=== PATIENT | female | born 1960 | race Caucasian/White ===

== ENCOUNTER → 2017-01-30 | Outpatient (CLI) | payer BC ==
[2017-01-30 11:00] LABS: Cholesterol 189 mg/dL (<200); HDL Cholesterol 66 mg/dL (40-60); Triglycerides 43 mg/dL (<150)
== END | disposition home or self-care (01) ==
LOC: LABWHC1 10:01
PROVIDERS: ATTEND Physician Assistant Medical
DX: E78.5 Hyperlipidemia, unspecified (principal)
CPT/HCPCS: 36415; 80061

== ENCOUNTER → 2021-05-28 | Outpatient (CLI) | payer BC ==
--- NOTE | 2021-05-28 15:48 | BD ---
EXAMINATION TYPE: Axial Bone Density DATE OF EXAM: 05/28/2021 COMPARISON: NONE CLINICAL HISTORY: Height: 66.5 IN Weight: 182 LBS RISK FACTORS HISTORY OF: Active: YES Diet low in dairy products/other sources of calcium: YES Postmenopausal woman: TOTAL HYST AGE 50 MEDICATIONS: Additional Medications: CALCIUM, VIT D, Additional History: BREAST CANCER EXAM MEASUREMENTS: Bone mineral densitometry was performed using the GRID System. Bone mineral density as measured about the Lumbar spine is: ----- L1-L4(G/cm2): 1.036 T Score Values are as follows: ----- L2: -1.7 ----- L3: -1.1 ----- L4: -0.9 ----- L1-L4: -1.2 Bone mineral density BASELINE Bone mineral density about the R hip (g/cm2): 0.900 Bone mineral density about the L hip (g/cm2): 0.872 T Score values are as follows: -----R Neck: -1.0 -----L Neck: -1.2 -----R Total: -0.9 -----L Total: -0.8 Bone mineral density BASELINE IMPRESSION: Osteopenia (T Score between -2.5 and -1). There is slightly increased risk of fracture and the patient may be considered for treatment. Re-Screen 2-5 years. NOTE: T-SCORE=SD OF THE YOUNG ADULT MEAN.
== END | disposition home or self-care (01) ==
LOC: RADBDWWP 12:19
PROVIDERS: ATTEND Internal Medicine Medical Oncology
DX: M85.89 Other specified disorders of bone density and structure, multiple sites (principal); Z78.0 Asymptomatic menopausal state; Z85.3 Personal history of malignant neoplasm of breast
CPT/HCPCS: 77080

== ENCOUNTER → 2023-05-05 | Outpatient (CLI) | payer MEDICARE, BC ==
[2023-05-05 15:09] LABS: Basophils % (A) 1.9 %; Eosinophils # (A) 0.13 X 10*3/uL (0.04-0.35); Eosinophils % (A) 2.5 %; HCT 45.5 % (37.2-46.3); HGB 15.5 d/dL (12.0-15.0); Lymphocytes # (A) 1.64 X 10*3/uL (0.90-5.00); Lymphocytes % (A) 31.1 %; MCH 32.1 pg (27.0-32.0); MCHC 34.1 d/dL (32.0-37.0); MCV 94.2 FL (80.0-97.0); Monocytes # (A) 0.65 X 10*3/uL (0.20-1.00); Monocytes % (A) 12.3 %; NRBC Per 100 WBC 0 X 10*3/uL (0.00-0.01); Neutrophils # (A) 2.73 X 10*3/uL (1.80-7.70); Neutrophils % (A) 51.8 %; Platelet Count 309 X 10*3/uL (140-440); RBC 4.83 X 10*6/uL (4.10-5.20); WBC 5.27 X 10*3/uL (4.50-10.00)
[2023-05-05 16:06] LABS: Blood Urea Nitrogen 16.8 mg/dL (9.0-27.0); Carbon Dioxide 28.1 mmol/L (21.6-31.8); Chloride 101 mmol/L (96-109); Potassium 5.2 mmol/L (3.5-5.5); Sodium 140 mmol/L (135-145)
== END | disposition home or self-care (01) ==
LOC: LABPAT 10:20
PROVIDERS: ATTEND Internal Medicine
DX: Z01.812 Encounter for preprocedural laboratory examination (principal); I48.11 Longstanding persistent atrial fibrillation; R06.02 Shortness of breath; R00.2 Palpitations
CPT/HCPCS: 80051; 82565; 84520; 85025

== ENCOUNTER 2023-05-06 10:25 | Day surgery (SDC) | payer MEDICARE, BC ==
[~2023-05-06 10:25] MED LIST: LACTATED RINGERS 1,000 ML IV SCH; LIDOCAINE 1% (10MG/ML) FOR IV START INTRADERMA PRN
[2023-05-06 11:17] VITALS: TEMP 97.2
[2023-05-06] MEDS ORDERED: BENZOCAINE SPRAY 1 CAN TOPICAL ONE (12:01)
[2023-05-06] MEDS ORDERED: LIDOCAINE 1% INJ 10MG/ML (20 ML MDV) ONE (12:03)
[2023-05-06] MEDS ORDERED: PROPOFOL 10 MG/ML 20 ML VIAL IV ONE (12:03)
[2023-05-06 13:08] VITALS: RESP 16
[2023-05-06 14:19] VITALS: BP 103/61; PULSE 48
--- NOTE | 2023-05-06 21:00 | P.TEE ---
Description of Procedure(s): Procedure performed: Transesophageal Echocardiogram with color flow doppler, pulsed wave doppler and continuous wave doppler, synchronized cardioversion Moderate conscious sedation: Moderate conscious sedation was supplied by anesthesia, see separate report. Complications: none Indications: Atrial fibrillation PROCEDURE: After the risks, benefits and alternatives of the above mentioned procedure was explained in detail with the patient, informed consent was obtained. Patient was brought to the lab in a fasting state. Patient was given sedation by anesthesia, see separate report. The throat was sprayed with Hurricane to anesthetize the throat. A lubricated Omni probe was then introduced into the esophagus and stomach and multiple views were obtained. 2D echo with color flow doppler, pulsed wave doppler and continuous wave doppler was utilized. Agitated saline bubbles were injected to assess for any intra-atrial shunt. The probe was then removed. There was no thrombus noted and therefore patient underwent synchronized cardioversion x 1 with 200J with resultant sinus rhythm. Patient tolerated the procedure well. Patient was transferred to the post procedure area in stable and satisfactory condition. FINDINGS: 1. The aortic valve is tricuspid with normal function and trace aortic insufficiency. 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 MRI recommended if clinically indicated. 2. The mitral valve appears be normal structurally with mild mitral regurgitation. 3. Tricuspid valve appears to be normal with trace tricuspid regurgitation. 4. There is no PFO. 5. Left atrial appendage is free of clot. 6. Left ventricular ejection fraction is 30-35% with global hypokinesis.
== END 2023-05-06 14:41 | disposition home or self-care (01) ==
LOC: OR 10:25
PROVIDERS: ATTEND Internal Medicine
DX: I08.3 Combined rheumatic disorders of mitral, aortic and tricuspid valves (principal); I48.19 Other persistent atrial fibrillation; E78.5 Hyperlipidemia, unspecified; Z82.49 Family history of ischemic heart disease and other diseases of the circulatory system; Z79.01 Long term (current) use of anticoagulants; Z79.899 Other long term (current) drug therapy
CPT/HCPCS: 93312; 93320; 93325; 92960; J2001; J2704

== ENCOUNTER → 2023-06-26 | Outpatient (CLI) | payer MEDICARE, BC ==
--- NOTE | 2023-06-29 12:22 | BD ---
EXAMINATION TYPE: Axial Bone Density DATE OF EXAM: 06/26/2023 CLINICAL HISTORY: 63 years old Female. 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 Menopause before 45: yes RISK FACTORS HISTORY OF: Family History of Osteoporosis: no Active: yes Diet low in dairy products/other sources of calcium: no Postmenopausal woman: yes Lost more than 2 inches in height since high school: no Frequent falls: no MEDICATIONS: Additional Medications: yes heart meds Additional History: yes breast 2008, melanoma 2009 EXAM MEASUREMENTS: Bone mineral densitometry was performed using the [employer] System. Bone mineral density as measured about the Lumbar spine is: ----- L1-L4(G/cm2): 1.021 T Score Values are as follows: ----- L1: -1.6 ----- L2: -1.3 ----- L3: -1.4 ----- L4: -1.3 ----- L1-L4: -1.3 Z Score Values are as follows: ----- L1: -0.9 ----- L2: -0.7 ----- L3: -0.7 ----- L4: -0.7 ----- L1-L4: -0.7 Bone mineral density has: Decreased -1.4% since study of: 05/28/2021 Bone mineral density about the R hip (g/cm2): 0.893 Bone mineral density about the L hip (g/cm2): 0.903 T Score values are as follows: -----R Neck: -1.8 -----L Neck: -1.7 -----R Total: -0.9 -----L Total: -0.8 Z Score values are as follows: -----R Neck: -0.9 -----L Neck: -0.8 -----R Total: -0.4 -----L Total: -0.3 Bone mineral density has: Increased 0.1% since study of: 05-28-2021 FRAX%s: The graph provided illustrates a 9.0% chance for a major osteoporotic fx and a 1.0% chance fo r the hips probability for fx in 10 years time. IMPRESSION: Osteopenia (T Score between -2.5 and -1). There is slightly increased risk of fracture and the patient may be considered for treatment. Re-Screen 2-5 years. NOTE: T-SCORE=SD OF THE YOUNG ADULT MEAN.
== END | disposition home or self-care (01) ==
LOC: RADBDWWP 14:51
PROVIDERS: ATTEND Internal Medicine Medical Oncology
DX: D05.11 Intraductal carcinoma in situ of right breast (principal); M85.89 Other specified disorders of bone density and structure, multiple sites; Z78.0 Asymptomatic menopausal state
CPT/HCPCS: 77080

== ENCOUNTER → 2023-12-25 | Day surgery (SDC) | payer MEDICARE, BC ==
[~2023-12-25] MED LIST changes: +ALPRAZolam 0.25 MG TAB PO PRN; +ALPRAZolam 0.5 MG TAB PO PRN; +ASPIRIN 81 MG ONE; -LACTATED RINGERS 1,000 ML IV SCH; -LIDOCAINE 1% (10MG/ML) FOR IV START INTRADERMA PRN; +NITROGLYCERIN SL TABS 0.4 MG TAB SUBLINGUAL PRN
[2023-12-25] MEDS: SODIUM CHLORIDE 0.9% 1,000 ML in EMPTY BAG 1 BAG IV SCH (06:16)
[2023-12-25] MEDS: ASPIRIN 325 MG TAB PO STA (06:18)
[2023-12-25 06:40] LABS: Basophils # (A) 0.1 k/uL (0-0.2); Basophils % (A) 2 %; Eosinophils # (A) 0.1 k/uL (0-0.7); Eosinophils % (A) 2 %; HCT 46.3 % (34.0-46.0); HGB 15.3 gm/dL (11.4-16.0); Lymphocytes % (A) 34 %; MCH 32.7 pg (25.0-35.0); MCV 98.9 fL (80.0-100.0); Mean Platelet Volume 8.8; Monocytes # (A) 0.8 k/uL (0-1.0); Monocytes % (A) 13 %; Neutrophils # (A) 2.7 k/uL (1.3-7.7); Neutrophils % (A) 46 %; Platelet Count 271 k/uL (150-450); RBC 4.68 m/uL (3.80-5.40); RDW 12.5 % (11.5-15.5); WBC 5.9 k/uL (3.8-10.6)
[2023-12-25 07:10] VITALS: TEMP 98.2
[2023-12-25] MEDS: LIDOCAINE 1% INJ 10MG/ML (20 ML MDV) SQ ONE (07:49)
[2023-12-25] MEDS: fentaNYL (PF) 50 MCG/1 ML VIAL IVP ONE ×2 (07:50→07:55)
[2023-12-25] MEDS: VERAPAMIL SYRINGE (5 MG/10 ML) INTRAARTER ONE (07:50)
[2023-12-25] MEDS: MIDAZOLAM 2 MG/2 ML VIAL IVP ONE ×2 (07:50→07:55)
[2023-12-25] MEDS: HEPARIN SODIUM 1,000 UN/ML (10ML VL) IVP ONE (07:53)
--- NOTE | 2023-12-25 08:01 | P.CARDCATH ---
Description of Procedure: PROCEDURES PERFORMED: Left heart catheterization, bilateral coronary angiography, ultrasound guided arterial access INDICATION: Abnormal stress test CONSENT:I have discussed the risks, benefits and alternative therapies for the above-mentioned procedure and for both sedation/analgesia as well as necessary blood product administration, if indicated, as they pertain to this patient. The patient has indicated understanding and acceptance of the risks and procedures discussed. PROCEDURE: After the risks, benefits and alternatives of the above mentioned procedure explained in detail with the patient, informed consent was obtained. Patient was taken to the catheterization lab and prepped and draped in usual fashion. Ultrasound guidance was used to assess for arterial access. 1% lidocaine was used to anesthetize the right radial artery. A 6-[place] sheath was placed in the right radial artery using modified Seldinger technique and ultrasound guidance. Left coronary angiography was performed with a 5-[place] JL 3.5 catheter and right coronary angiography was performed with a 5-[place] FR5 catheter in various views. A 5-[place] FR5 catheter was inserted into the left ventricle and pressure measurements were obtained. The right radial sheath was removed and a TR band was placed with hemostasis achieved. The patient to lerated the procedure well. Patient was transported back to the post catheterization holding area in stable condition. Conscious Sedation: Patient was monitored under the direct supervision of myself for conscious sedation using Versed and fentanyl for a total duration of 8 minutes HEMODYNAMICS: Aorta: 114/77 LV: 123 mL LVEDP 15 SELECTIVE CORONARY ARTERIOGRAPHY: LEFT MAIN: The left main is a large caliber vessel which bifurcates into the LAD and circumflex. There is no significant stenosis. LEFT ANTERIOR DESCENDING CORONARY ARTERY: LAD is a large caliber vessel which wraps around to the apex. There is no significant stenosis. LEFT CIRCUMFLEX CORONARY ARTERY: Left circumflex is a moderate caliber vessel without significant stenosis. RIGHT CORONARY ARTERY: The right coronary artery is a large caliber vessel which gives off a PDA and PLV branch and is the dominant vessel. There is no significant stenosis. FINAL IMPRESSION: 1. Normal coronary arteries as described above. 2. Normal left sided filling pressures PLAN: 1. Aggressive risk factor modification per most recent ACC/AHA guidelines. 2. Follow-up in the office in 1-2 weeks.
[2023-12-25] MEDS: IOPAMIDOL-370 100ML BTL INTRATHECA ONE (08:06)
[2023-12-25 10:36] VITALS: BP 100/59; PULSE 52; RESP 16
== END ==
LOC: CATHCVL 05:41
PROVIDERS: ATTEND Internal Medicine
DX: R94.31 Abnormal electrocardiogram [ECG] [EKG] (principal)
CPT/HCPCS: 93458; 76937; 85025; C1769; C1894; J2250; J2001; J1644; Q9967; J3010

== ENCOUNTER → 2024-06-13 | Outpatient (CLI) | payer MEDICARE ==
[2024-06-13 15:09] LABS: HGB 13.8 g/dL (12.0-15.0); MCH 33.2 pg (27.0-32.0); MCHC 33.7 g/dL (32.0-37.0); MCV 98.6 FL (80.0-97.0); Mean Platelet Volume 12.1 FL (9.5-12.2); NRBC Per 100 WBC 0 X 10*3/uL (0.00-0.01); Platelet Count 273 X 10*3/uL (140-440); RBC 4.16 X 10*6/uL (4.10-5.20); RDW 12.4 % (11.5-14.5); WBC 5.18 X 10*3/uL (4.50-10.00)
[2024-06-13 15:10] LABS: Blood Urea Nitrogen 17.2 mg/dL (9.0-27.0); Carbon Dioxide 27.4 mmol/L (21.6-31.8); Chloride 102 mmol/L (96-109); Potassium 4.6 mmol/L (3.5-5.5); Sodium 139 mmol/L (135-145)
== END | disposition home or self-care (01) ==
LOC: LABPAT 10:08
PROVIDERS: ATTEND Internal Medicine Clinical Cardiac Electrophysiology
DX: Z01.812 Encounter for preprocedural laboratory examination (principal); I48.0 Paroxysmal atrial fibrillation
CPT/HCPCS: 36415; 80051; 82565; 84520; 85027

== ENCOUNTER 2024-06-16 09:37 | Day surgery (SDC) | payer BC, MEDICARE ==
[2024-06-16] MEDS: IV FLUID CONTINUATION 1,000 ML IV ONE (09:48)
[2024-06-16] MEDS: SODIUM CHLORIDE 0.9% 1,000 ML IV SCH (09:50)
[2024-06-16 11:06] LABS: ALT 19 U/L (4-34); AST 27 U/L (14-36); African American GFR (CKD) 86 (>60 ml/min/1.73 sqM); Albumin 4.9 g/dL (3.5-5.0); Alkaline Phosphatase 79 U/L (38-126); Anion Gap 5 mmol/L; Blood Urea Nitrogen 19 mg/dL (7-17); Calcium 9.5 mg/dL (8.4-10.2); Carbon Dioxide 29 mmol/L (22-30); Chloride 104 mmol/L (98-107); Glucose 82 mg/dL (74-99); Non-African American GFR(CKD) 74 (>60 ml/min/1.73 sqM); Potassium 4.1 mmol/L (3.5-5.1); Sodium 138 mmol/L (137-145); Total Bilirubin 1.9 mg/dL (0.2-1.3); Total Protein 7.6 g/dL (6.3-8.2)
[2024-06-16 11:27] LABS: Basophils # (A) 0.1 k/uL (0-0.2); Basophils % (A) 1 %; Eosinophils # (A) 0.1 k/uL (0-0.7); Eosinophils % (A) 2 %; HGB 14.5 gm/dL (11.4-16.0); Lymphocytes # (A) 1.5 k/uL (1.0-4.8); Lymphocytes % (A) 29 %; MCH 32.5 pg (25.0-35.0); MCHC 32.9 g/dL (31.0-37.0); MCV 98.8 fL (80.0-100.0); Mean Platelet Volume 8.9; Monocytes # (A) 0.4 k/uL (0-1.0); Monocytes % (A) 8 %; Neutrophils % (A) 58 %; Platelet Count 283 k/uL (150-450); RBC 4.46 m/uL (3.80-5.40); RDW 12.3 % (11.5-15.5); WBC 5.2 k/uL (3.8-10.6)
[2024-06-16] MEDS ORDERED: ePHEDrine 50 MG/ML 1 ML VIAL ONE (11:48)
[2024-06-16] MEDS ORDERED: ONDANSETRON 4 MG/2 ML VIAL ONE (11:48)
[2024-06-16] MEDS ORDERED: MIDAZOLAM 2 MG/2 ML VIAL ONE (11:48)
[2024-06-16] MEDS ORDERED: LIDOCAINE 1% INJ 10MG/ML (20 ML MDV) ONE (11:48)
[2024-06-16] MEDS ORDERED: ISOPROTERENOL 250 MCG/1.25 ML SYR IV ONE (11:48)
[2024-06-16] MEDS ORDERED: ROCURONIUM 10 MG/ML (5 ML VIAL) IV ONE (11:48)
[2024-06-16] MEDS ORDERED: HEPARIN SODIUM,PORCINE 10,000 UNIT/ML 1 ML VIAL ONE (11:48)
[2024-06-16] MEDS ORDERED: DEXAMETHASONE SOD PHOSPHATE 4 MG/ML 1 ML VIAL ONE (11:48)
[2024-06-16] MEDS ORDERED: PROPOFOL 10 MG/ML 20 ML VIAL IV ONE (11:48)
[2024-06-16] MEDS ORDERED: fentaNYL (PF) 50 MCG/ML 2 ML AMP ONE (11:48)
[2024-06-16] MEDS ORDERED: SUCCINYLCHOLINE CHLORIDE 200 MG/10 ML VIAL IV ONE (11:48)
[2024-06-16] MEDS: HEPARIN SODIUM,PORCINE (1 ML) 2,500 UNIT in SODIUM CHLORIDE 0.9% 250 ML IRRIGATION ONE (12:05)
[2024-06-16] MEDS: HEPARIN SODIUM,PORCINE 10,000 UNIT in SODIUM CHLORIDE 0.9% 1,000 ML IRRIGATION ONE (12:05)
[2024-06-16] MEDS: HEPARIN SOD,PORK IN 0.45% NACL 25,000 UNIT in 0.45% NACL 1 250ML.BAG IV ONE (12:05)
--- NOTE | 2024-06-16 12:11 | P.HPCAR ---
History of Present Illness This is Dr. Spivey dictating an H/P on this patient The patient was interviewed and examined IMPRESSION / ASSESSMENT: Present atrial fibrillation, with symptoms of tiredness fatigue and lack of energy/terms of congestive heart failure Associated cardiomyopathy left ventricular ejection fraction 30-35% Normal coronary arteries LVEDP 15 mmHg TSH normal PLAN: A-fib ablation HPI Patient has symptomatic atrial fibrillation with congestive heart failure symptoms and associated cardiomyopathy No recent syncope chest discomfort dizziness lightheadedness Denies any fever chills cough expectoration ROS: No fever chills or rigors, no cough, phlegm or expectoration, no nausea, vomiting or diarrhea, no hematuria, dysuria, no musculoskeletal complaints, no strokes or seizures, no skin lesions. EXAMINATION: External neck veins prominent Blood pressure 147/71 mmHg pulse rate in the 50s afebrile Heart sounds are normal and regular Breath sounds are clear REVIEW OF LABS, ECG & MEDICAL DATA White count 5.2 thousand, hemoglobin 14.5 Platelet count 283,000 Electrolytes normal SH normal Creatinine 0.9 Medications include Lasix Eliquis and metoprolol succinate Physical Exam Vitals: Vital Signs Temp Pulse Resp BP Pulse Ox 06/16/24 10:10 97.9 F 53 L 16 147/71 98 Intake and Output 06/15/24 06/16/24 06/16/24 22:59 06:59 14:59 Intake Total 50 Balance 50 Intake: IV 50 Other: Weight 89.5 kg Past Medical History Past Medical History: Atrial Fibrillation, Cancer, GERD/Reflux, Hyperlipidemia Additional Past Medical History / Comment(s): SEE DR. SPIVEY'S H&P; melanoma, bilateral breast cancer- surgery only, +Covid 2 months ago-not hospitalized History of Any Multi-Drug Resistant Organisms: None Reported Past Surgical History: Breast Surgery, Hysterectomy, Tonsillectomy, Tubal Ligation Additional Past Surgical History / Comment(s): Bilateral mastectomies/reconstruction, skin cancer removed, laparotomies/laparoscopies d/t ectopic pregnancies. cardioversion Apr 2023 Past Anesthesia/Blood Transfusion Reactions: Motion Sickness, Postoperative Nausea & Vomiting (PONV) Smoking Status: Former smoker - Past Family History Father Family Medical History: AFIB, Cancer Additional Family Medical History / Comment(s): from cancer Mother Family Medical History: AFIB Sister(s) Family Medical History: AFIB Physical Examination Vital Signs Temp Pulse Resp BP Pulse Ox 06/16/24 10:10 97.9 F 53 L 16 147/71 98 Intake and Output 06/15/24 06/16/24 06/16/24 22:59 06:59 14:59 Intake Total 50 Balance 50 Intake: IV 50 Other: Weight 89.5 kg Results 06/16/24 10:00 06/16/24 10:00 Cardiac Enzymes 06/16/24 Range/Units 10:00 AST 27 (14-36) U/L CBC 06/16/24 Range/Units 10:00 WBC 5.2 (3.8-10.6) k/uL RBC 4.46 (3.80-5.40) m/uL Hgb 14.5 (11.4-16.0) gm/dL Hct 44.0 (34.0-46.0) % Plt Count 283 (150-450) k/uL Comprehensive Metabolic Panel 06/16/24 Range/Units 10:00 Sodium 138 (137-145) mmol/L Potassium 4.1 (3.5-5.1) mmol/L Chloride 104 (98-107) mmol/L Carbon Dioxide 29 (22-30) mmol/L BUN 19 H (7-17) mg/dL Creatinine 0.84 (0.52-1.04) mg/dL Glucose 82 (74-99) mg/dL Calcium 9.5 (8.4-10.2) mg/dL AST 27 (14-36) U/L ALT 19 (4-34) U/L Alkaline Phosphatase 79 (38-126) U/L Total Protein 7.6 (6.3-8.2) g/dL Albumin 4.9 (3.5-5.0) g/dL Current Medications Generic Name Dose Route Start Last Admin Trade Name Freq PRN Reason Stop Dose Admin Sodium Chloride 1,000 mls @ 50 mls/hr 06/16/24 06:19 06/16/24 09:50 Saline 0.9% IV 07/16/24 06:18 50 mls/hr .Q20H ROSARIO Administration Intake and Output 06/15/24 06/16/24 06/16/24 22:59 06:59 14:59 Intake Total 50 Balance 50 Intake: IV 50 Other: Weight 89.5 kg Patient Weight 06/17/24 06:59 Weight 89.5 kg 06/16/24 10:00 06/16/24 10:00
[2024-06-16] MEDS: LIDOCAINE 1% INJ 10MG/ML (20 ML MDV) SQ ONE (12:23)
[2024-06-16] MEDS: IOPAMIDOL-370 100ML BTL INJ ONE (13:53)
--- NOTE | 2024-06-16 14:08 | P.EPPROC ---
- EP Procedure Note Electrophysiology Procedure Note: PROCEDURE A. fib ablation with PVI and left atrial septal ablation DIAGNOSIS Atrial fibrillation, symptomatic, refractory to therapy RESULT No left atrial appendage mass seen on intracardiac echo, near normal LV systolic function, mildly thickened pericardium without effusion No mass on the coronary cusps on intracardiac echo Successful A. fib ablation/pulmonary vein isolation of all veins using cryo- ablation at an antral level Complete entrance block in all 4 veins confirmed No evidence for phrenic nerve injury Left atrial septal ablation as well as additional ablation outside both upper pulmonary veins Esophageal deflection YES High-dose Isopril and burst stimulation from 2 atrial sites performed after PVI. No inducible atrial fibrillation Left atrial roof was not ablated PROCEDURE DETAILS Written informed consent prior to procedure. Patient brought to the EP lab. General anesthesia given. Heparin administered. A city maintained above 300 seconds Both groins prepped and draped per protocol and venous sheaths placed. Esophagus intubated, circa catheter for temperature monitoring an endoscope for possible esophageal deflection. Phrenic nerve monitoring performed. Esophageal temperature monitoring performed. Esophageal deflection performed if circa catheter overlapping with the balloon or circa temperature less than 27.5C Intracardiac echocardiography performed. Pericardium evaluated. Left atrial appendage evaluated. Left atrium evaluated along with pulmonary veins Transseptal catheterization performed under fluoroscopic guidance and intracardiac echo guidance Cryoablation sheath exchanged, balloon catheter along with achieve catheter p laced in the left atrium. Pulmonary veins isolated in the following sequence: Left superior pulmonary vein followed by left inferior pulmonary vein, followed by right inferior pulmonary vein and lastly right superior pulmonary vein. Phrenic nerve stimulation along with capture thresholds within the SVC and right superior pulmonary vein to identify the phrenic nerve proximity to the cryo- balloon. Pulmonary veins isolated and confirmed with entrance and exit block. Phrenic nerve integrity confirmed at the end of the procedure Ablation of the left atrial septum performed with cannulation of the superior branch of the right inferior and the inferior branch of the right superior vein to achieve ablation of the posterior septum of the left atrium. Ablation of electrograms confirmed Diagnostic catheters for the high right atrium, His bundle, coronary sinus placed. LA and RA pressures recorded LA pressure: Diagnostic EP study with coronary sinus pacing and recording Baseline measurements: Venous sheaths were removed and hemostasis assured with a closure device. Patient extubated and transferred to recovery PROCEDURES PERFORMED Diagnostic EP study CS pacing and recording Left and right transseptal catheterization Catheter the mapping of the tachycardia Intracardiac echocardiography Pulmonary vein isolation with transseptal and comprehensive EPS, [id number] Drug infusion, +[id number] Linear ablation, septum left atrium, +[id number]
--- NOTE | 2024-06-16 14:09 | P.PRLE ---
RE: Ana María Qiu Dear Carolinastoney Gotti underwent A-fib ablation successfully today without any acute complications Following pulmonary vein isolation and left atrial septal ablation A-fib could not be induced on high-dose Isopril and rapid burst stimulation from 2 sites in the atria I have stopped amiodarone completely She will continue anticoagulation for now and will follow-up with you and Dr. Marion as before Thank you for entrusting me with the care of the patient Warm regards Sincerely Stefano Spivey
[2024-06-16] MEDS: ACETAMINOPHEN IV (For NPO) 1,000 MG in EMPTY BAG 1 BAG IVPB ONE (15:57)
[2024-06-16] MEDS: APIXABAN 5 MG TAB PO SCH (19:36)
[2024-06-17 02:15] VITALS: TEMP 97.9
[2024-06-17] MEDS: ACETAMINOPHEN TAB 325 MG TAB PO PRN (03:20)
[2024-06-17 07:13] VITALS: BP 103/67; PULSE 67; RESP 16
--- NOTE | 2024-06-17 07:33 | P.DS ---
Providers Attending physician: Stefano Spivey Primary care physician: [facility] Course: Patient is doing well. Sitting up comfortably in a chair. No chest pain no dizziness no lightheadedness Groins of healed well no hematoma no swelling On examination heart sounds are normal and regular Breath sounds are clear Blood pressure 103/67 mmHg Afebrile Impression Persistent atrial fibrillation failed medical treatment with oral amiodarone Status post PVI and left atrial septal ablation A-fib noninducible thereafter both on and off Isopril and rapid atrial pacing Plan Uninterrupted Eliquis for 2 months. Long-term Eliquis decision based on [id number] score and LV function Continue cardiomyopathy medications Follow-up with Dr. Marion in a week Plan - Discharge Summary Discharge Rx Participant: Yes New Discharge Prescriptions: No Action Calcium Carbonate/Vitamin D3 [Calcium 500 mg Chewable Tablet] 500 mg PO BID Apixaban [Eliquis] 5 mg PO BID Multivitamin [Multivitamins Adult Gummies] 1 tab PO QAM Furosemide [Lasix] 20 mg PO QAM Cholecalciferol (Vitamin D3) [Vitamin D3 (50 Mcg = 2000 Iu) Chew Tab] 50 mcg PO QAM Ascorbic Acid [Vitamin C chew] 500 mg PO BID Metoprolol Succinate (ER) [Toprol XL] 50 mg PO QAM Discharge Medication List Apixaban [Eliquis] 5 mg PO BID 05/01/23 [History] Ascorbic Acid [Vitamin C chew] 500 mg PO BID 05/01/23 [History] Calcium Carbonate/Vitamin D3 [Calcium 500 mg Chewable Tablet] 500 mg PO BID 05/01/23 [History] Cholecalciferol (Vitamin D3) [Vitamin D3 (50 Mcg = 2000 Iu) Chew Tab] 50 mcg PO QAM 05/01/23 [History] Metoprolol Succinate (ER) [Toprol XL] 50 mg PO QAM 05/01/23 [History] Multivitamin [Multivitamins Adult Gummies] 1 tab PO QAM 05/01/23 [History] Furosemide [Lasix] 20 mg PO QAM 12/23/23 [History] Follow up Appointment(s)/Referral(s): Jerry Marion DO [STAFF PHYSICIAN] - 1 Week Activity/Diet/Wound Care/Special Instructions: Post EP study - Ablation instructions 1. Keep access sites dry for 2 days. 2. No heavy lifting or straining for 2 days. 3. Avoid bending the hips repeatedly for 2 days. 4. You may go up and down stairs slowly 5. If you have had an ablation for atrial fibrillation or atrial flutter and are on a blood thinner, do not stop the blood thinner even temporarily for 3 months post ablation Call if the following is noted 1. Bleeding, increasing swelling or pain at the access sites. 2. Increasing chest discomfort, especially upon taking a deep breath. 3. Increasing shortness of breath, at rest or with exertion. 4. Undue cough / phlegm 5. Difficulty or pain while swallowing. 6. Pain or change in color in the extremities. 7. Fever, chills, rigors. 8. Increasing headache or neurologic symptoms. 9. Dizziness, fainting, palpitations Do not hold Eliquis even temporarily for any minor procedure for the next 2 months. This is a strict instruction to prevent stroke/TIA post ablation Amiodarone has been discontinued 1 month prior and will stay discontinued Follow-up with Dr. Marion in 1 week Discharge Disposition: HOME SELF-CARE
[2024-06-17] MEDS: METOPROLOL SUCCINATE (ER) 50 MG TAB.ER.24H PO SCH (09:29)
[2024-06-17] MEDS: FUROSEMIDE 20 MG TAB PO SCH (09:29)
== END 2024-06-17 10:17 | disposition home or self-care (01) ==
LOC: CATHEP 09:37 → 6NMEDSUR 13:53 → CATHEP 06-17 10:17
PROVIDERS: ATTEND Internal Medicine Clinical Cardiac Electrophysiology
DX: I48.19 Other persistent atrial fibrillation (principal); I50.9 Heart failure, unspecified; I42.9 Cardiomyopathy, unspecified; K21.9 Gastro-esophageal reflux disease without esophagitis; E78.5 Hyperlipidemia, unspecified; Z86.16 Personal history of COVID-19; Z85.820 Personal history of malignant melanoma of skin; Z85.3 Personal history of malignant neoplasm of breast; Z90.710 Acquired absence of both cervix and uterus; Z87.891 Personal history of nicotine dependence
CPT/HCPCS: 93623; 93656; 93657; 86900; 86901; 80053; 84443; 85025; 86850; C1894; C1769; C1760 ×2; C1730 ×2; C1759; C1733; C1766; J1644 ×3; J2003; J0131; Q9967